=== PATIENT | male | born 1995 | race Caucasian/White ===

== ENCOUNTER 2017-11-16 15:06 | Emergency (ER) | payer BC | END 2017-11-16 18:02 | disposition home or self-care (01) | LOC: FTE 15:06 | DX: B00.9 Herpesviral infection, unspecified (principal) | CPT/HCPCS: 99283 ==

== ENCOUNTER 2018-01-08 15:40 | Emergency (ER) | payer BC | END 2018-01-08 18:48 | disposition home or self-care (01) | LOC: FTE 15:40 | DX: M54.5 Low back pain (principal) | CPT/HCPCS: 72072; 72100; 99283-25 ==

== ENCOUNTER 2018-03-04 02:03 | Emergency (ER) | payer BC | END 2018-03-04 05:48 | disposition home or self-care (01) | LOC: FTE 02:03 | DX: M25.561 Pain in right knee (principal) | CPT/HCPCS: 73562; 99283-25 ==

== ENCOUNTER 2018-08-02 01:26 | Emergency (ER) | payer BC ==
[2018-08-02] MEDS: CIPROFLOXACIN 500 MG TAB PO (02:11)
== END 2018-08-02 03:00 | disposition home or self-care (01) ==
LOC: FTE 01:26 → E/R 03:00
DX: Z20.811 Contact with and (suspected) exposure to meningococcus (principal)
CPT/HCPCS: 99283